=== PATIENT | female | born 1935 | race Caucasian/White ===

== ENCOUNTER 2017-12-01 07:51 | Inpatient (IN) | payer OTHER ==
[2017-11-22 09:53] VITALS: Ht 157.5 cm; Wt 83.8 kg
--- NOTE | 2017-11-22 10:36 | PAT Medication Instructions ---
Service Date November 22, 2017. Current Home Medication List Aspirin (Aspirin Ec), 81 MG PO HS Cholecalciferol (Vitamin D3), 1 TAB PO QAM Esomeprazole Magnesium (Nexium), 20 MG PO QAM Lorazepam (Ativan), 1 MG PO BID PRN for Anxiety Sertraline (Zoloft), 100 MG PO QAM Simvastatin (Zocor), 40 MG PO QPM [Oxybutynin], 1 TAB PO NOON Medication Instructions For Your Scheduled Surgery - Hold the following medications the morning of surgery: Cholecalciferol (Vitamin D3), 1 TAB PO QAM - Take the following medications the morning of surgery with a sip of water OTHERWISE NOTHING TO EAT OR DRINK AFTER MIDNIGHT: Sertraline (Zoloft), 100 MG PO QAM Lorazepam (Ativan), 1 MG PO BID PRN for Anxiety Esomeprazole Magnesium (Nexium), 20 MG PO QAM - Take the following medications as scheduled the evening before surgery: Simvastatin (Zocor), 40 MG PO QPM Aspirin (Aspirin Ec), 81 MG PO HS [Oxybutynin], 1 TAB PO NOON Lorazepam (Ativan), 1 MG PO BID PRN for Anxiety If you have any questions please call us at [phone] or [phone] or [phone]
--- NOTE | 2017-11-22 11:40 | DIAGNOSTIC IMAGING REPORT ---
CHEST 2 VIEWS ROUTINE CLINICAL HISTORY: Preoperative chest COMPARISON STUDY: No previous studies for comparison. FINDINGS: The cardiac and mediastinal contours are normal. There is no focal pulmonary consolidation. There are no pleural effusions. There is ankylosis of the dorsal spine. There is no failure.[ IMPRESSION: No active disease in the chest. Electronically signed by: Felipe Shearer M.D. 11/22/2017 11:38 AM Dictated Date/Time: 11/22/2017 11:37 AM
[2017-11-22 11:53] LABS: BASO % 0.7 %; BASO ABS # 0.05 K/uL (0-0.2); EOS ABS # 0.14 K/uL (0-0.5); HEMATOCRIT 40.7 % (37-47); HEMOGLOBIN 13.3 g/dL (12.0-16.0); IG# 0.01 K/uL (0.00-0.02); LYMPH ABS # 2.13 K/uL (1.2-3.4); MEAN CELL VOLUME 85.5 fL (80-100); MEAN CORPUSCULAR HEMOGLOBIN 27.9 pg (25-34); MEAN CORPUSCULAR HGB CONC 32.7 g/dl (32-36); MEAN PLATELET VOLUME 11.4 fL (7.4-10.4); MONO % 10.9 %; MONO ABS # 0.75 K/uL (0.11-0.59); NEUT % 55.3 %; PLATELET COUNT 249 K/uL (130-400); RED CELL DISTRIBUTION WIDTH CV 14.5 % (11.5-14.5); RED CELL DISTRIBUTION WIDTH SD 45.3 fL (36.4-46.3); WHITE BLOOD COUNT 6.88 K/uL (4.8-10.8)
[2017-11-22 12:02] LABS: PTT PATIENT 28.2 SECONDS (21.0-31.0)
[2017-11-22 12:08] LABS: HEMOGLOBIN A1C 5.9 % (4.5-5.6)
[2017-11-22 13:20] LABS: ALBUMIN 3.8 gm/dl (3.4-5.0); CALCIUM 8.7 mg/dl (8.5-10.1); CREATININE 0.78 mg/dl (0.60-1.20); POTASSIUM 3.8 mmol/L (3.5-5.1)
--- NOTE | 2017-11-30 11:06 | HISTORY & PHYSICAL EXAMINATION ---
DATE OF ADMISSION: 11/30/2017 CHIEF COMPLAINT: Left knee pain. HISTORY OF PRESENT ILLNESS: The patient is an 82-year-old female with known osteoarthritis about her bilateral knees, left worse than right. She had a previous left knee arthroscopy 7 or 8 years ago. She has had previous viscosupplementation as well as corticosteroid injections. Due to ongoing pain and disability with activities of daily living, patient now desires to proceed with left total knee arthroplasty. PAST MEDICAL HISTORY: Irregular heartbeat, depression, osteoarthritis, acid reflux, obesity, skin cancer. PAST SURGICAL HISTORY: Cholecystectomy, rectocele, carpal tunnel surgery, cataract surgery, partial hysterectomy, meniscus surgery. MEDICATIONS: Lorazepam 1 mg 3 times daily p.r.n., aspirin 81 mg daily, simvastatin 40 mg daily, sertraline 100 mg daily, vitamin D3 daily. ALLERGIES: No known drug allergies. SOCIAL HISTORY AND REVIEW OF SYSTEMS: Noncontributory. PHYSICAL EXAMINATION: GENERAL: Well-nourished, well-developed elderly female who appears her stated age. HEENT: Normocephalic, atraumatic, extraocular movements intact, oropharynx pink and moist. NECK: Supple without adenopathy. LUNGS: Clear to auscultation bilaterally. HEART: Regular rate and rhythm. ABDOMEN: Soft, nontender, nondistended. EXTREMITIES: The upper extremities within normal limits. The left knee has a neutral alignment. She complains primarily of medial compartment pain. Her range of motion is from 0-120 degrees. X-RAYS: X-rays were reviewed. She has bone on bone arthritis of the medial compartment with complete loss of the joint space. There is evidence of subchondral sclerosis. There is moderate degenerative change about the patellofemoral joint with osteophytes as well. ASSESSMENT: Left knee degenerative joint disease. PLAN: Risks versus benefits were discussed, consent was obtained. The patient's primary care physician is Dr. Torres from [facility] [place]. Her counselor nurses' association is Jeison Downs from [facility]. We will proceed with left total knee arthroplasty as indicated. FORREST
[2017-12-01] VITALS (8 sets, daily range): BP systolic 112–148; BP diastolic 68–78; PULSE 67–86; TEMP 36.5–36.8; O2SAT 93–98
[~2017-12-01] VITALS: Ht 157.5 cm; Wt 83.8 kg
[~2017-12-01 07:51] MED LIST: ASPI81TA28 PO; ATV/1 PO; BUPIVACAINE 0.5 % 5 MG/1 ML PF 10ML VIAL ONE; CHOL1000 PO; ESOM20CA PO; OXYBUTYNIN PO; ROPIVACAINE 0.5% 5 MG/ML 30 ML VIAL ONE; ROPIVACAINE 5MG/ML 30 ML 150 MG, BUPIVACAINE 0.5% MPF INJ 30 ML, EpINEphrine HCL INJ 0.... INFIL SCH; SERT-234 PO; SIMV40TA2 PO; TRANEXAMIC ACID INJ 1,000 MG x 2 Bags IV SCH
[2017-12-01] MEDS ORDERED: MIDAZOLAM HCL 1 MG/ML 2ML VIAL ONE ×3 (08:12→10:38)
[2017-12-01] MEDS ORDERED: FENTANYL CITRATE INJ 50 MCG/1 ML 2 ML VIAL ONE (08:12)
[2017-12-01] MEDS ORDERED: ACETAMINOPHEN 500 MG TAB PO STA (08:17)
[2017-12-01] MEDS ORDERED: CEFAZOLIN 2000MG IV PUSH 15 ML IV STA (08:17)
[2017-12-01] MEDS ORDERED: CeleBREX 200 MG CAP PO STA (08:17)
[2017-12-01] MEDS ORDERED: GABAPENTIN 300 MG CAP PO STA (08:18)
[2017-12-01] MEDS ORDERED: DEXAMETHASONE 4 MG TAB PO STA (08:18)
[2017-12-01] MEDS ORDERED: METOCLOPRAMIDE HCL 10 MG TAB PO STA (08:18)
[2017-12-01] MEDS ORDERED: FAMOTIDINE 20 MG TAB PO STA (08:18)
[2017-12-01] MEDS ORDERED: OXYCODONE HCL 10 MG TABCR (OXYCONTIN) PO STA (08:18)
--- NOTE | 2017-12-01 08:54 | History & Physical Bridge Note ---
H&P Re-Evaluation Bridge Note: I have examined the patient, reviewed the History & Physical and in the interval since the performance of the History & Physical I have noted the following changes of clinical significance: No changes noted
[2017-12-01] MEDS ORDERED: ONDANSETRON INJ 2 MG/ML 2 ML VIAL IV PRN ×2 (09:00→11:45)
[2017-12-01] MEDS ORDERED: ATROPINE SULFATE 0.1 MG/ML 5ML SYR IV PRN (09:00)
[2017-12-01] MEDS ORDERED: HYDROmorphone INJ 2 MG/ML SYR/VIAL IV PRN (09:00)
[2017-12-01] MEDS ORDERED: EpHEDrine SULFATE INJ 50 MG/ML AMP IV PRN (09:00)
[2017-12-01] MEDS ORDERED: PHENYLEPHRINE 100MCG/ML 5ML SYR IV PRN (09:00)
[2017-12-01] MEDS ORDERED: POVIDONE-IODINE OP SOLN 30 ML BTL ONE (09:28)
[2017-12-01] MEDS ORDERED: BACITRACIN 50000 UNIT VIAL ONE (09:28)
[2017-12-01] MEDS ORDERED: PROPOFOL IV EMULSION 10 MG/ML 20 ML VIAL ONE (10:03)
[2017-12-01] MEDS ORDERED: LIDOCAINE HCL 2% 2 ML VIAL (20MG/ML) ONE (10:03)
[2017-12-01] MEDS ORDERED: EpHEDrine SULFATE 50MG/5ML SYR ONE (10:03)
--- NOTE | 2017-12-01 10:51 | [facility] Post Operative Brief Note ---
Immediate Operative Summary Operative Date December 01, 2017. Pre-Operative Diagnosis Left Knee Degenerative Joint Disease Post-Operative Diagnosis Left Knee Degenerative Joint Disease Procedure(s) Performed Left Total Knee Arthroplasty Surgeon Dr. Hays Wool Shearer Surgeon(s) LYNN Santoro Estimated Blood Loss 10 ml Findings Consistent with Post-Op Diagnosis Specimens A. Left Knee Bone and Tissue Anesthesia Type MAC Spinal Regional Complication(s) none Disposition Accompanied Pt To Recover: no Disposition: Recovery Room / PACU Overlapping Procedure I was present for: the critical portions of procedure. I was immediately available: during the entire case
[2017-12-01] MEDS ORDERED: MAGNESIUM HYDROXIDE SUSP 30 ML UDC PO PRN (11:45)
[2017-12-01] MEDS ORDERED: OXYCODONE HCL IR 5 MG TAB (IMMEDIATE RELEASE) PO PRN (11:45)
[2017-12-01] MEDS ORDERED: ALUMINUM/MAGNESIUM/SIMETH (MAALOX MAX) 30 ML UDC PO PRN (11:45)
[2017-12-01] MEDS ORDERED: BISACODYL 10 MG SUPP PR PRN (11:45)
[2017-12-01] MEDS ORDERED: LORAZEPAM 1 MG TAB PO PRN (11:45)
[2017-12-01] MEDS ORDERED: MoRPHine SULFATE 4 MG/ML 1 ML CARP\\VIAL IV PRN (11:45)
--- NOTE | 2017-12-01 11:48 | DIAGNOSTIC IMAGING REPORT ---
L KNEE 1 OR 2 VIEWS ROUTINE CLINICAL HISTORY: Postoperative evaluation. COMPARISON: None FINDINGS: Alignment of the total left knee arthroplasty is anatomic. There is no fracture or unexpected radiopaque foreign body. Drains are in place. IMPRESSION: Expected findings following total left knee arthroplasty. Electronically signed by: Brian Ocasio M.D. 12/01/2017 11:47 AM Dictated Date/Time: 12/01/2017 11:46 AM
--- NOTE | 2017-12-01 11:58 | Anesthesiology Progress Note ---
Anesthesia Post Op Note Date & Time December 01, 2017 at 11:58 Vital Signs Pain Intensity: 0 Vital Signs Past 12 Hours Date Time Temp Pulse Resp B/P (MAP) Pulse Ox O2 Delivery O2 Flow Rate FiO2 12/01/17 11:45 36.4 84 20 144/69 95 Nasal Cannula 2 12/01/17 11:35 83 16 140/61 95 Nasal Cannula 2 12/01/17 11:25 36.4 83 18 139/68 94 Nasal Cannula 2 12/01/17 08:35 36.8 67 18 148/78 96 Room Air Notes Mental Status: alert / awake / arousable, participated in evaluation Pt Amnestic to Procedure: Yes Nausea / Vomiting: adequately controlled Pain: adequately controlled Airway Patency, RR, SpO2: stable & adequate BP & HR: stable & adequate Hydration State: stable & adequate Anesthetic Complications: no major complications apparent
--- NOTE | 2017-12-01 13:45 | OPERATIVE REPORT ---
DATE OF OPERATION: 12/01/2017 PREOPERATIVE DIAGNOSIS: Osteoarthritis, left knee. POSTOPERATIVE DIAGNOSIS: Osteoarthritis, left knee. PROCEDURE: Left total knee arthroplasty. SURGEON: Aung Hays M.D. TUFTER: Beck Burnham PA-C. ANESTHESIA: Spinal. COMPLICATIONS: None. IMPLANTS USED: Femoral size 3, tibial size 3, tibial poly 9, patella size 39. OPERATION AND FINDINGS: Following induction of spinal anesthesia, the patient's left leg was prepped and draped in the usual sterile manner. Limb was exsanguinated with an Esmarch bandage and tourniquet was inflated to 350 mmHg. A longitudinal incision was made anteriorly. Subcutaneous tissue was sharply dissected. Electrocautery was used for hemostasis. Prepatellar bursa was incised and median parapatellar incision was performed. Patella was everted and the knee was flexed. Fat pad was removed to aid in visualization and the anterior and posterior cruciate ligaments were removed. The medial face of the tibia was cleared of soft tissue first with a Bovie and a De Luna elevator. This tissue was retracted posteriorly using a blunt Hohmann. A Kennedy retractor was used to expose the synovium above on the anterior aspect of the femur and this was removed down to bone. The PSI guide was placed on the distal femur and two pins were placed anteriorly and kept in position and two additional pins were placed distally and removed. The distal femoral cutting block was placed in position and the distal femoral cut was used in the +0 setting. Next, the cutting block was removed and the 3 block was placed in the distal end of the femur. Care was taken to ensure appropriate external rotation and feeler gauge was used to ensure no notching would occur. The femoral block was centered on the distal femur and in the medial and lateral direction and was fixed using two bone screws. The gold pins were then removed. The oscillating saw was used to create the bone cuts and the distal femoral cutting block was removed and the reciprocating saw was used to further trim the femoral cuts as well as a deep in the area for the trochlear groove. Next, posterior condyle remnants were removed. Following this, a meniscal clamp and knife were utilized to remove the anterior portion of both medial and lateral meniscus. The proximal tibia PSI guide was placed into position and the proximal tibial cutting guide was screwed into position. The extra medullary alignment guide was utilized to ensure appropriate alignment. The proximal tibia was cut and the proximal tibial cutting block was removed and this bone fragment was removed. The appropriate guide was used to perform the notch cut on the distal femur and a lamina starcher and tenter range feeder and a cochlear knife were utilized to finish both medial and lateral meniscectomies to remove any remnants of the posterior or anterior cruciate ligaments. Following this, the distal femoral component was impacted into position and blunt Isabell was used to sublux the tibia anteriorly. The proximal tibia was sized and a 3 tibial tray was chosen as the size to be used. This was put into position and appropriate external rotation and a double check with extramedullary alignment guide was performed. The canal for the tibial stem was prepared first with a 17 mm drill and then the punch and a mallet and the trial tibial poly was placed. A 9 was chosen the size to be used. It was brought to extension and the patella was prepared with the patellar reamer. A 39 component was chosen the size to be used. The trial component was placed and knee was taken through a full range of motion and there was found to be no lateral subluxation of the tibia. No lateral release was required. The trials were all removed. The final components were obtained and assembled. Cement was mixed. The knee was thoroughly irrigated and the ortho mix was injected about the knee joint. The final components were cemented into position. After thoroughly suctioning and drying the bone ends, all excess cement was removed. The knee was held in extension while the cement hardened. The wound was irrigated and closed over a Hemovac drain. #1 Vicryl was used to close the extensor mechanism. Subcutaneous tissues closed using 0 Dexon. Skin was closed with radhames. Sterile dressing of Adaptic, 4 x 4's, sterile Webril, and Robert was applied. The patient tolerated the procedure well. Due to the complex nature of the procedure, the entire surgery was performed with the operational assistance of Beck Burnham PA-C. The administrative assistant data entry, under direct supervision, was involved in the actual performance of all aspects of the surgical procedure including hemostasis, tissue retraction and incision, instrument management, patient positioning, and wound closure. DISPOSITION: Recovery room, stable. I attest to the content of the Intraoperative Record and any orders documented therein. Any exception s are noted below.
[2017-12-01] MEDS: D5W AND 1/2NSS + 20MEQ KCL 1,000 ML IV SCH ×2 (14:10→23:53)
[2017-12-01] MEDS: ACETAMINOPHEN 500 MG TAB PO SCH ×2 (14:10→21:07)
[2017-12-01] MEDS: OXYBUTYNIN CHLORIDE 5 MG TABCR PO SCH (15:30)
[2017-12-01] MEDS ORDERED: NURSING VERBAL MED ORDER ONE (15:30)
[2017-12-01] MEDS: FERROUS GLUCONATE 324 MG TAB PO SCH (17:39)
[2017-12-01] MEDS: CEFAZOLIN IV 2,000 MG in SYRINGE 0 ML IV SCH (18:44)
[2017-12-01] MEDS: DOCUSATE SODIUM 100 MG CAP PO SCH (21:06)
[2017-12-01] MEDS: ASPIRIN 81 MG ECTAB PO SCH (21:06)
[2017-12-01] MEDS: SENNA 8.6 MG TAB PO SCH (21:06)
[2017-12-01] MEDS: CeleBREX 200 MG CAP PO SCH (21:07)
[2017-12-01] MEDS: SIMVASTATIN 40 MG TAB PO SCH (21:07)
[2017-12-02] MEDS: CEFAZOLIN IV 2,000 MG in SYRINGE 0 ML IV SCH (02:07)
[2017-12-02 02:41] VITALS: BP 137/71; PULSE 70; TEMP 36.8; O2SAT 97
[2017-12-02] MEDS: ACETAMINOPHEN 500 MG TAB PO SCH ×3 (05:59→21:51)
[2017-12-02 06:55] LABS: HEMOGLOBIN 12.3 g/dL (12.0-16.0); MEAN CELL VOLUME 85.2 fL (80-100); MEAN CORPUSCULAR HEMOGLOBIN 27.6 pg (25-34); MEAN CORPUSCULAR HGB CONC 32.4 g/dl (32-36); MEAN PLATELET VOLUME 10.5 fL (7.4-10.4); PLATELET COUNT 223 K/uL (130-400); RED CELL DISTRIBUTION WIDTH CV 14.4 % (11.5-14.5); WHITE BLOOD COUNT 16.44 K/uL (4.8-10.8)
[2017-12-02 07:22] LABS: CALCIUM 8.1 mg/dl (8.5-10.1); CREATININE 0.9 mg/dl (0.60-1.20); POTASSIUM 4.4 mmol/L (3.5-5.1)
[2017-12-02 07:38] VITALS: BP 154/76; PULSE 74; TEMP 36.8; O2SAT 96
--- NOTE | 2017-12-02 07:51 | Orthopedic Progress Note ---
Orthopedic Progress Note Date of Service December 02, 2017. Subjective Post OP Day: 1 Reports: feeling well, Denies: complaints Additional Notes: states she has some tingling in her toes this AM Objective calves soft nontender, dressing C/D/I, A&O x3, toes mobile, hemovac drainage ( 150ml) Slight numb/tingling sensation in her toes this AM. Good DF/PF strengths. Date Time Temp Pulse Resp B/P (MAP) Pulse Ox O2 Delivery O2 Flow Rate FiO2 12/02/17 07:38 36.8 74 18 154/76 (102) 96 Room Air 12/02/17 02:41 36.8 70 14 137/71 (93) 97 Room Air 12/02/17 00:00 Room Air 12/01/17 22:56 36.7 76 14 130/72 (91) 94 Room Air 12/01/17 19:35 36.5 78 18 127/68 (87) 93 Room Air 12/01/17 15:28 36.8 77 16 114/69 (84) 98 Room Air 12/01/17 14:30 86 122/73 (89) 95 2.0 12/01/17 13:28 82 18 112/68 (83) 97 2.0 12/01/17 12:57 82 18 127/68 (87) 97 2.0 12/01/17 12:35 Nasal Cannula 2.0 12/01/17 12:35 Nasal Cannula 12/01/17 12:30 36.8 85 18 135/70 (91) 95 Nasal Cannula 2.0 12/01/17 12:15 84 17 138/66 92 Nasal Cannula 2 12/01/17 12:00 81 15 145/67 94 Nasal Cannula 2 12/01/17 11:45 36.4 84 20 144/69 95 Nasal Cannula 2 12/01/17 11:35 83 16 140/61 95 Nasal Cannula 2 12/01/17 11:25 36.4 83 18 139/68 94 Nasal Cannula 2 12/01/17 08:35 36.8 67 18 148/78 96 Room Air Laboratory Results 24 Hours: Test 12/02/17 06:44 Hematocrit 38.0 % Hemoglobin 12.3 g/dL Assessment & Plan Assessment: POD 1 s/p L TKA Plan: PT/OT Unsure if she wants to do OPPT or HH. Will decide today. Inhouse Planning Pain Management: Celebrex, Ultram, Morphine, PO Tylenol, Oxy IR DVT Prophylaxis: TEDs, SCDs, ASA Discharge Planning Discharge Planning: uncertain
[2017-12-02] MEDS ORDERED: ACET-24 PO (07:53)
[2017-12-02] MEDS ORDERED: ASPI81TA28 PO (07:53)
[2017-12-02] MEDS ORDERED: RXC5 PO (07:53)
[2017-12-02] MEDS ORDERED: CLB200 PO (07:53)
[2017-12-02] MEDS ORDERED: SENN-61 PO (07:53)
--- NOTE | 2017-12-02 07:57 | Discharge Instructions ---
Discharge Instructions Date of Service December 02, 2017. Admission Reason for Admission: Left Knee Osteoarthritis Discharge Discharge Diagnosis / Problem: Left Knee Djd Discharge Goals Goal(s): Decrease discomfort, Improve function, Increase independence Activity Recommendations Activity Limitations: per Instructions/Follow-up section Weightbearing Status: Left weightbearing (as tolerated) . Instructions / Follow-Up Instructions / Follow-Up ACTIVITY RECOMMENDATIONS: SELF CARE INSTRUCTIONS AFTER TOTAL KNEE REPLACEMENT A. You may need to continue a physical therapy program after discharge from the hospital. There are several options available to you. Your doctor will assist you in selecting the best one for you. 1. An out-patient facility 2 to 3 times a week for therapy or home therapy. 2. Continue working on all exercises taught to you in the hospital. Your goals should be to increase bending of your knee to 90 degrees and beyond and to fully straighten your knee. B. You may progress at your own pace from walking with a walker or crutches to a cane; then to no assistive devices. C. Make walking a part of your daily routine. Be up as much as comfortable with rest periods throughout the day. Rest with leg elevation is very important. Use the ice wrap frequently for the first 3-4 weeks. D. There are no restrictions on activities. You may ride in a car, shop, participate in mental health social worker and all social activities. E. Wear the long elastic stockings (IRVING hose) 20 hours a day for 2 weeks after surgery. They can be removed several times a day for laundering and for a bath. F. You may shower, no tub baths until cleared by your doctor. SPECIAL CARE INSTRUCTIONS: VERY IMPORTANT TO READ AND REVIEW A. There are a few signs you need to watch for after you are home. Call [facility] if you notice any of the followin. Increased severe knee pain. Some pain is expected especially when you exercise. 2. Increased swelling in your leg or knee; pain or swelling of the calf muscle in either lower leg. 3. Any fluid drainage from the incision. 4. Shortness of breath or chest pain. B. Please call [facility] at if you have any concerns or questions about your operation or recovery. The doctor or his nurse will return your call promptly. C. You must take antibiotics before dental work, bladder, bowel or other surgery. Your doctor will provide you with a permanent care to carry describing this precaution. IMPORTANT: * REMEMBER TO TAKE ASPIRIN, 81 MG, TWICE DAILY FOR 4 WEEKS UNLESS OTHERWISE DIRECTED. THIS IS YOUR BLOOD THINNER. * HIGH RISK PATIENTS MAY BE PRESCRIBED A STRONGER BLOOD THINNER. THIS WILL BE PROVIDED AT DISCHARGE. * CALL IF INCREASED PAIN, REDNESS, DRAINAGE OR FEVER GREATER THAT 101. * WEAR IRVING HOSE 20 HOURS PER DAY FOR 2 WEEKS. * Silverlon- This is a large adhesive bandage that contains silver ions. This helps your incision heal by fighting off bacteria and protecting it from the outside environment. You are permitted to shower with this dressing. This will remain on your incision for 7 days and then should be removed. Some visible blood or drainage through the dressing window is normal. If there is significant drainage or leaking noted before the 7 days notify your doctor's office immediately. Once removed, keep incision clean and dry. If there is any drainage or redness noted, please call your surgeon. . * You have a Zipline Closure System. As noted below, this keeps your incision closed. Change the dressing daily. Keep the wound covered with a dressing as it has the potential to snag on your clothing. The Zipline will remain on for a total of 2 weeks. Do not remove it! You may shower with this on. Do not soak it; no tub baths. You will be given instructions by nursing staff at the time of discharge to care for your Zip Closure System. This devices uses plastic straps to keep your incision closed and protected throughout your recovery. If you have any questions please refer to these instructions first. FOLLOW UP VISIT: If appointment is not already scheduled: Please call [facility] to make a follow-up appointment for 2 weeks after your surgery at . Current Hospital Diet Patient's current hospital diet: Regular Diet Discharge Diet Recommended Diet: Regular Diet Procedures Procedures Performed: Left Total Knee Arthroplasty Pending Studies Studies pending at discharge: no Laboratory Results Hemoglobin A1c Test 11/22/17 10:34 Range/Units Estimated Average Glucose 123 mg/dl Hemoglobin A1c 5.9 H 4.5-5.6 % Medical Emergencies . Who to Call and When: Medical Emergencies: If at any time you feel your situation is an emergency, please call 911 immediately. . Non-Emergent Contact Non-Emergency issues call your: Surgeon Call Non-Emergent contact if: temperature is above 101.5, your pain is not controlled, your pain is worsening, wound has increased drainage, wound has increased redness . "Provider Documentation" section prepared by Beck Burnham. . [place] Drug Monitoring Program Search Results: patient reviewed within database, no issues identified
[2017-12-02] MEDS: ASPIRIN 81 MG ECTAB PO SCH ×2 (08:25→20:51)
[2017-12-02] MEDS: SERTRALINE HCL 100 MG TAB PO SCH (08:25)
[2017-12-02] MEDS: DOCUSATE SODIUM 100 MG CAP PO SCH ×2 (08:25→20:50)
[2017-12-02] MEDS: FERROUS GLUCONATE 324 MG TAB PO SCH ×3 (08:25→18:00)
[2017-12-02] MEDS: MULTIVITAMIN TAB PO SCH (08:25)
[2017-12-02] MEDS: CeleBREX 200 MG CAP PO SCH ×2 (08:26→20:50)
[2017-12-02] MEDS: CHOLECALCIFEROL 1000 INTER.UNIT TAB PO SCH (08:26)
[2017-12-02] MEDS: PANTOprazole SOD 40 MG TAB PO SCH (08:26)
--- NOTE | 2017-12-02 08:35 | Anesthesiology Progress Note ---
Anesthesia Post Op Note Date & Time December 02, 2017 at 08:35 Vital Signs Pain Intensity: 0.0 Vital Signs Past 12 Hours Date Time Temp Pulse Resp B/P (MAP) Pulse Ox O2 Delivery O2 Flow Rate FiO2 12/02/17 07:38 36.8 74 18 154/76 (102) 96 Room Air 12/02/17 02:41 36.8 70 14 137/71 (93) 97 Room Air 12/02/17 00:00 Room Air 12/01/17 22:56 36.7 76 14 130/72 (91) 94 Room Air Notes Mental Status: alert / awake / arousable, participated in evaluation Pt Amnestic to Procedure: Yes Nausea / Vomiting: adequately controlled Pain: adequately controlled Airway Patency, RR, SpO2: stable & adequate BP & HR: stable & adequate Hydration State: stable & adequate Neuraxial Anesthesia: sensory block resolved Anesthetic Complications: no major complications apparent
[2017-12-02] MEDS: D5W AND 1/2NSS + 20MEQ KCL 1,000 ML IV SCH (09:15)
[2017-12-02 11:26] VITALS: BP 161/76; PULSE 70; TEMP 36.6; O2SAT 97
[2017-12-02] MEDS: OXYBUTYNIN CHLORIDE 5 MG TABCR PO SCH (12:45)
[2017-12-02 15:17] VITALS: BP 147/67; PULSE 75; TEMP 36.4; O2SAT 96
[2017-12-02] MEDS: TRAMADOL HCL 50 MG TAB PO PRN ×2 (15:54→20:49)
[2017-12-02] MEDS: SIMVASTATIN 40 MG TAB PO SCH (20:50)
[2017-12-02] MEDS: SENNA 8.6 MG TAB PO SCH (20:50)
[2017-12-02 23:25] VITALS: BP 151/75; PULSE 82; TEMP 36.7; O2SAT 97
[2017-12-03 00:15] VITALS: O2SAT 97
[2017-12-03] MEDS: ACETAMINOPHEN 500 MG TAB PO SCH (05:43)
--- NOTE | 2017-12-03 06:11 | Orthopedic Progress Note ---
Orthopedic Progress Note Date of Service December 03, 2017. Subjective Post OP Day: 2 Reports: feeling well, pain controlled w PO medications, Denies: complaints, chest pain, SOB, nausea / vomiting, light headedness, calf pain Objective calves soft nontender, N/V intact, capillary refill less than 2 sec., dressing C /D/I, incision C/D/I, toes mobile, hemovac drainage (50cc/8 hours) Date Time Temp Pulse Resp B/P (MAP) Pulse Ox O2 Delivery O2 Flow Rate FiO2 12/03/17 00:15 97 Room Air 2.0 12/02/17 23:25 36.7 82 18 151/75 (100) 97 Room Air 12/02/17 15:55 Room Air 12/02/17 15:17 36.4 75 18 147/67 (93) 96 Room Air 12/02/17 11:26 36.6 70 18 161/76 (104) 97 Room Air 12/02/17 08:00 Room Air 12/02/17 07:38 36.8 74 18 154/76 (102) 96 Room Air Laboratory Results 24 Hours: Test 12/02/17 06:44 Hematocrit 38.0 % Hemoglobin 12.3 g/dL Assessment & Plan Assessment: POD 2 s/p L TKA Plan: PT/OT would like d/c home with OPPT @ [facility] Discharge Planning Discharge Planning: home with oppt, uncertain DVT Prophylaxis: TEDs, SCDs, ASA Therapy: Physical Therapy
[2017-12-03 07:31] VITALS: BP 136/72; PULSE 69; TEMP 36.8; O2SAT 96
[2017-12-03] MEDS: ASPIRIN 81 MG ECTAB PO SCH (07:43)
[2017-12-03] MEDS: PANTOprazole SOD 40 MG TAB PO SCH (07:43)
[2017-12-03] MEDS: CHOLECALCIFEROL 1000 INTER.UNIT TAB PO SCH (07:43)
[2017-12-03] MEDS: DOCUSATE SODIUM 100 MG CAP PO SCH (07:43)
[2017-12-03] MEDS: FERROUS GLUCONATE 324 MG TAB PO SCH (07:43)
[2017-12-03] MEDS: SERTRALINE HCL 100 MG TAB PO SCH (07:44)
[2017-12-03] MEDS: MULTIVITAMIN TAB PO SCH (07:44)
[2017-12-03] MEDS: CeleBREX 200 MG CAP PO SCH (07:44)
[2017-12-03 09:14] VITALS: BP 136/72; PULSE 69; TEMP 36.8; O2SAT 96
[2017-12-03] MEDS: TRAMADOL HCL 50 MG TAB PO PRN (10:24)
== END 2017-12-03 11:17 | disposition home or self-care (01) | DRG 470 ==
LOC: C.ACU 07:51 → ENRESERV 12:08 → C.3E 12:38
PROC: 0SRD0J9 Replacement of Left Knee Joint with Synthetic Substitute, Cemented, Open Approach (ICD-10-PCS; principal; 2017-12-01 10:45)
DX: M17.0 Bilateral primary osteoarthritis of knee (principal); K21.9 Gastro-esophageal reflux disease without esophagitis; F32.9 Major depressive disorder, single episode, unspecified; E66.9 Obesity, unspecified; Z79.899 Other long term (current) drug therapy; Z79.82 Long term (current) use of aspirin; Z68.33 Body mass index [BMI] 33.0-33.9, adult; Z85.828 Personal history of other malignant neoplasm of skin